=== PATIENT | female | born 1990 | race Caucasian/White ===

== ENCOUNTER 2019-05-21 11:15 | Outpatient (REF) | payer MEDICAID, SELFPAY ==
--- NOTE | 2019-05-21 10:50 | PAPFT_PTH ---
PATIENT: Rocío Mills LOC: [facility] U#:[id number] AGE/SX: 29/F ROOM: RE05/21/[address]: Chance Heaton MD : 1990 BED: DIS: 05/21/2019 SPEC #: [id number] RECD: 05/21/19 12:59 STATUS: VERONICA REQ #: [id number] KEITH: 05/21/19 10:[address]: Chance Heaton DEPT: [facility] Cytology RECD BY: Johanna Paul ENTERED: 05/21/19 13:00 SP TYPE: PAPFT OTHR DR: Coco Monge V Tissues: 1 - CX/ENDOCX FOR PAP SMEARS Procedures: PAP THIN PREP/[facility] Screening HPV DNA PROBE Comments: [id number]
== END 2019-05-21 11:35 ==
LOC: LBN 11:15
PROVIDERS: PCP Family Medicine; Visit Provider Obstetrics & Gynecology
DX: Z12.4 Encounter for screening for malignant neoplasm of cervix (principal); Z11.51 Encounter for screening for human papillomavirus (HPV)
CPT/HCPCS: 88142; 87624

== ENCOUNTER 2019-11-28 09:51 | Outpatient (CLI) | payer MEDICAID, SELFPAY ==
[2019-11-28 11:06] LABS: Abs Immature Grans 0.01 k/cumm (0.0-0.09); Absolute Basophil Count 0.01 k/cumm (0.0-0.2); Absolute Eosinophil Count 0.04 k/cumm (0.0-0.7); Absolute Lymphocyte Count 1.92 k/cumm (1.2-3.4); Absolute Monocyte Count 0.36 k/cumm (0.11-0.7); Absolute Neutrophil Count 4.56 k/cumm (1.2-6.7); Basophils % 0.1; Eosinophils % 0.6; HCT 36.5 % (36.0-46.0); HGB 12.4 g/dL (12.0-15.5); Immature Grans % 0.1 %; Lymphocytes % 27.8; Mean Corpuscular Hemoglobin 30.9 pg (27.0-33.0); Mean Platelet Volume 10.2 fL (8.0-11.0); Monocytes % 5.2; Neutrophils % 66.2; Platelet Count 327 x1000/uL (130-400); RBC 4.01 m/cumm (4.00-5.20)
[2019-11-28 16:15] LABS: *AMPHETAMINES SCREEN URINE Negative (Negative); *BARBITURATES SCREEN URINE Negative (Negative); *BENZODIAZEPINES SCREEN URINE Negative (Negative); Cannabinoids THC Negative (Negative); Cocaine Screen,Urine Negative (Negative); METHADONE URINE SCREEN Negative (Negative); OPIATES URINE SCREEN Negative (Negative)
[2019-11-28 16:26] LABS: Tricyclic Antidepressants Negative (Negative)
[2019-11-29 10:01] LABS: Rubella IgG Ab (UVM) Positive (See Note); Varicella IgG Antibody Positive (See Note)
[2019-11-29 10:07] LABS: HIV-1/2 Ag & Ab Screen Negative (Negative); Hepatitis B Surface Ag Negative (Negative)
[2019-11-29 10:09] LABS: Hepatitis C Ab w Rflx HCV PCR Negative (Negative)
[2019-11-29 13:01] LABS: Syphilis Total Ab w/Reflex Nonreactive (Nonreactive)
[2019-12-04 08:19] LABS: Buprenorphine Negative; Norbuprenorphine Negative
== END 2019-11-28 10:11 ==
PROVIDERS: PCP Family Medicine; Visit Provider Advanced Practice Midwife
DX: Z34.91 Encounter for supervision of normal pregnancy, unspecified, first trimester (principal); Z77.011 Contact with and (suspected) exposure to lead; Z11.4 Encounter for screening for human immunodeficiency virus [HIV]; Z11.59 Encounter for screening for other viral diseases; Z01.84 Encounter for antibody response examination
CPT/HCPCS: 80307; 86787; 86803; 86850; 86900; 86901; 87340; 87389; 83655; 84443; 85025; 86762; 86780; 87086

== ENCOUNTER 2019-11-28 10:01 | Outpatient (CLI) | payer MEDICAID, SELFPAY ==
[2019-11-29 12:22] LABS: Antithrombin Activity, Plasma 103 % (80 - 130)
[2019-12-04 14:00] LABS: Protein C, Functional 73 % (71-199); Protein S, Functional 47 % (64-147)
[2019-12-04 16:00] LABS: Methylenetetrahydrofol Reduc M Heterozygous (Negative); Prothrombin G20210A Mutation Negative (Negative)
== END 2019-11-28 10:21 ==
PROVIDERS: PCP Family Medicine; Visit Provider Obstetrics & Gynecology
DX: R77.8 Other specified abnormalities of plasma proteins (principal); Z83.2 Family history of diseases of the blood and blood-forming organs and certain disorders involving the immune mechanism
CPT/HCPCS: 36415; 81240; 85300; 85306; 81291; 85303; 86147

== ENCOUNTER 2019-12-03 04:36 | Outpatient (CLI) | payer MEDICAID, SELFPAY ==
[2019-12-03 13:04] LABS: Kit/Specimen SENT
[2019-12-09 07:20] LABS: Result Summary NEGATIVE; Specimen WB Whole Blood
== END 2019-12-03 04:56 ==
PROVIDERS: PCP Family Medicine; Visit Provider Advanced Practice Midwife
DX: Z34.91 Encounter for supervision of normal pregnancy, unspecified, first trimester (principal); Z36.89 Encounter for other specified antenatal screening
CPT/HCPCS: 36415; 81220

== ENCOUNTER 2019-12-18 01:36 | Outpatient (CLI) | payer MEDICAID, SELFPAY ==
[2019-12-20 12:26] LABS: Homocysteine 4.8 umol/L (5.0-13.9)
[2019-12-24 17:51] LABS: Factor V Leiden(R506Q) Mut Negative (Negative)
== END 2019-12-18 01:56 ==
PROVIDERS: Obstetrics & Gynecology; PCP Family Medicine; Visit Provider Advanced Practice Midwife
DX: E72.12 Methylenetetrahydrofolate reductase deficiency (principal)
CPT/HCPCS: 36415; 81241; 83090

== ENCOUNTER 2020-01-16 01:01 | Outpatient (CLI) | payer MEDICAID, SELFPAY ==
--- NOTE | 2020-01-16 14:25 | DI.US_ITS ---
EXAM: US OB 2-3 TRIMESTER CLINICAL HISTORY: .Z34.90 TECHNIQUE: Ultrasound performed using standard protocol. COMPARISON: No exams were available for comparison FINDINGS: Ob ultrasound was performed utilizing 2nd trimester protocol. biometry is consistent with gest ational age of 18 weeks 3 days and EDC of 06/15/2020. Placenta is anterior. Lower margin of the shi centa is about 2 cm above the internal os. No placenta previa seen. anomaly screen is within normal limits as per the attached checklist. There is a normal quanti ty of amniotic fluid. heart rate is 130 BPM. IMPRESSION: Low-lying placenta noted in 18 week 3 day gestational without evidence of placenta previa. Follow-up ultrasound suggested at approximately 30 weeks gestational age. DATA REPOSITORY:
== END 2020-01-16 01:21 ==
PROVIDERS: PCP Family Medicine; Visit Provider Advanced Practice Midwife
DX: Z34.92 Encounter for supervision of normal pregnancy, unspecified, second trimester (principal); Z3A.18 18 weeks gestation of pregnancy
CPT/HCPCS: 76805

== ENCOUNTER → 2022-02-04 00:52 | Outpatient (CLI) | payer MEDICAID, SELFPAY ==
--- NOTE | 2022-02-04 14:30 | DI.US_ITS ---
Exam(s) US BREAST RT COMPLETE EXAM: US BREAST RT COMPLETE CLINICAL HISTORY: LUMP IN RT BREAST, UPPER INNER QUADRANT, N63.12, FAM H/O BREAST CA TECHNIQUE: Ultrasound right breast performed using standard protocol. All 4 quadrants of the right breast were evaluated sonographically. COMPARISON: No exams were available for comparison FINDINGS: No solid or cystic masses, hypoechoic foci, areas of abnormal shadowing, or areas of skin thickening. IMPRESSION: 1. No sonographically suspicious finding. 2. Findings were discussed with the patient on the date of the examination. BI-RADS Category 1 - Negative DATA REPOSITORY:
== END ==
PROVIDERS: PCP Family Medicine; Visit Provider Nurse Practitioner Family
DX: N63.12 Unspecified lump in the right breast, upper inner quadrant (principal); Z80.3 Family history of malignant neoplasm of breast
CPT/HCPCS: 76642

== ENCOUNTER 2022-06-13 16:38 | Outpatient (REF) | payer MEDICAID, SELFPAY ==
[2022-06-13 16:34] LABS: Abs Immature Grans 0.01 10^3/uL (0.0-0.06); Absolute Basophil Count 0.05 10^3/uL (0.0-0.2); Absolute Eosinophil Count 0.04 10^3/uL (0.0-0.7); Absolute Lymphocyte Count 1.81 10^3/uL (1.2-3.4); Absolute Monocyte Count 0.48 10^3/uL (0.1-0.8); Absolute Neutrophil Count 3.96 10^3/uL (1.2-6.7); Basophils % 0.8; Eosinophils % 0.6; HCT 41.2 % (36.0-46.0); HGB 13.5 g/dL (11.2-15.7); Immature Grans % 0.2; Lymphocytes % 28.5; MCH 29.6 pg (27.0-33.0); MCHC 32.8 % (32.0-36.0); MCV 90 fL (80-95); MPV 11.3 fL (8.0-11.0); Monocytes % 7.6; Neutrophils % 62.3; Platelet Count 363 10^3/uL (130-400); RBC 4.56 10^6/uL (3.93-5.22); RDW 12.6 % (11.7-14.6); RDW-SD 41.6 fL; WBC 6.35 10^3/uL (4.4-10.8)
[2022-06-13 18:49] LABS: ALT 36 U/L (14-59); AST 26 U/L (15-37); Alkaline Phosphatase 54 U/L (46-116); BUN 15 mg/dL (7-18); Bilirubin, Total 0.4 mg/dL (0.2-1.0); CREATININE 0.7 mg/dL (0.55-1.02); Calcium 8.7 mg/dL (8.5-10.1); Chloride 104 mmol/L (98-107); Estimated GFR 117.04 (mL/min/1.73m2); Glucose 69 mg/dL (74-106); Sodium 140 mmol/L (136-145); TSH (W/Ref FT4) 1.53 uIU/mL (0.36-3.74); Total Protein 7.7 g/dL (6.4-8.2)
== END 2022-06-13 16:39 | disposition home or self-care (01) ==
LOC: NCHCN 16:38
PROVIDERS: PCP Family Medicine; Visit Provider Nurse Practitioner Family
DX: R19.7 Diarrhea, unspecified (principal)
CPT/HCPCS: 80053; 84443; 85025

== ENCOUNTER 2022-06-20 13:58 | Outpatient (REF) | payer MEDICAID, SELFPAY ==
[2022-06-21 10:29] LABS: Campylobacter PCR Negative (Negative); Salmonella PCR Negative (Negative); Shiga Toxin PCR Negative (Negative); Shigella/Enteroinvasive Ecoli Negative (Negative)
== END 2022-06-20 13:59 | disposition home or self-care (01) ==
LOC: NCHCN 13:58
PROVIDERS: PCP Family Medicine; Visit Provider Nurse Practitioner Family
DX: R19.7 Diarrhea, unspecified (principal)
CPT/HCPCS: 87329; 87505; 83630

== ENCOUNTER 2024-01-01 14:47 | Outpatient (REF) | payer MEDICAID, SELFPAY ==
--- NOTE | 2024-01-01 08:45 | PAPFT_PTH ---
PATIENT: Rocío Mills LOC: [facility]#:[id number] AGE/SX: 33/F ROOM: RE01/01/[address]: Sarah Mcnally : 1990 BED: DIS: 01/01/2024 SPEC #: [id number] RECD: 01/01/24 18:05 STATUS: VERONICA REQ #: [id number] KEITH: 01/01/24 08:[address]: Sarah Mcnally DEPT: [facility] Cytology RECD BY: Johanna Paul ENTERED: 01/01/24 18:05 SP TYPE: PAPFT OTHR DR: Coco Monge V Tissues: 1 - CX/ENDOCX FOR PAP SMEARS Procedures: PAP THIN PREP/[facility] Screening HPV DNA PROBE Comments: [id number]
== END 2024-01-01 14:48 | disposition home or self-care (01) ==
LOC: NCHCN 14:47
PROVIDERS: PCP Family Medicine; Visit Provider Nurse Practitioner Family
DX: Z12.4 Encounter for screening for malignant neoplasm of cervix (principal)
CPT/HCPCS: 88142; 87624

== ENCOUNTER → 2024-02-07 01:22 | Outpatient (CLI) | payer OTHER, SELFPAY ==
--- NOTE | 2024-02-07 | DI.MAMMO_ITS ---
Exam(s) MAMMO SCREENING EXAM: MAMMO SCREENING CLINICAL HISTORY: SCREENING MAMMO FOR BREAST CANCER Z12.31 TECHNIQUE: Bilateral full field digital CC and MLO mammographic images were obtained with 3D tomosyn thesis and utilizing computer aided detection (CAD). COMPARISON: This is a baseline examination. FINDINGS: Masses/Architectural Distortion: None seen. Microcalcifications: No suspicious pleomorphic-type are seen. Skin Thickening/Nipple Retraction: None. IMPRESSION: 1. No features of malignancy noted. 2. Unless there is more urgent need, screening mammography is recommended, as per [employer] [place] guidelines. BI-RADS Category 1 - Negative Breast Density - Category C - Heterogeneously dense Breast density category C or D implies that the patient has dense breast tissue. Dense breast tissue is very common and is not abnormal but dense breast tissue can make it harder to find cancer on a ma mmogram. Also, dense breast tissue may increase their breast cancer risk. This information about the result of the mammogram report was provided to the patient to raise their awareness. Use this report when you speak with the patient about their risks for breast cancer, which includes their family hist ory. At that time, you may recommend for more screening tests (Ultrasound or MRI) as they might be us eful based on their risk. A negative radiographic report should not delay biopsy if a dominant or clinically suspicious mass is present. Up to ten percent of cancers are not identified on mammography. A negative report may reinforce clinical impression. Adenosis and dense breasts may obscure an underlying neoplasm. False positive reports average 6 to 10%. Patient will receive a letter notifying them of these results.
== END ==
PROVIDERS: PCP Family Medicine; Visit Provider Nurse Practitioner Family
DX: Z12.31 Encounter for screening mammogram for malignant neoplasm of breast (principal); R92.333 Mammographic heterogeneous density, bilateral breasts
CPT/HCPCS: 77063; 77067

== ENCOUNTER 2024-02-23 10:41 | Outpatient (CLI) | payer OTHER, SELFPAY | END 2024-02-23 10:42 | disposition home or self-care (01) | PROVIDERS: PCP Family Medicine; Visit Provider Nurse Practitioner Family | DX: R00.2 Palpitations (principal) | CPT/HCPCS: 93270 ==

== ENCOUNTER 2024-03-28 08:11 | Outpatient (CLI) | payer OTHER, SELFPAY ==
--- NOTE | 2024-03-28 13:48 | W.CARDEVENT ---
Date of service: 03/28/24 Time of Service: 13:48 Cardiac Event Recorder Referring Provider:: Sarah Mena Indications:: Palpitations Cardiac Event Note: This is a cardiac event monitor. Patient was monitored for 15 days and 15 hours Rhythm throughout was sinus with an average heart rate of 78. Minimum heart rate was 48, maximum 134 There were no significant ventricular or supraventricular dysrhythmias. Patient symptoms were reported which correlated to sinus rhythm
== END 2024-03-28 08:12 | disposition home or self-care (01) ==
LOC: CARDOPNVT 08:11
PROVIDERS: PCP Family Medicine; Visit Provider Internal Medicine Cardiovascular Disease
DX: R00.2 Palpitations (principal)

== ENCOUNTER 2024-04-26 00:21 | Outpatient (CLI) | payer MEDICAID, SELFPAY ==
--- NOTE | 2024-04-26 07:45 | DI.US_ITS ---
Exam(s) US OB 1ST TRIMESTER EXAM: US OB 1ST TRIMESTER CLINICAL HISTORY: dating and viability,Z3A.01. COMPARISON: No exams were available for comparison TECHNIQUE: Transabdominal first trimester obstetrical ultrasound performed. FINDINGS: Sonographic images demonstrate a single intrauterine gestation. A yolk sac and pole are seen. Sonographically assessed gestational age based upon crown-rump length of 28 cm is: 9+ 6 weeks Estimated date of delivery based on this ultrasound is: 23 November 2024 Estimated date of delivery based upon LMP: 20 November 2024 heart rate motion is Dopplered at: 171 bpm. No free fluid identified. The ovaries were not visualized. Uterus: 8.0 x 4.8 x 8.3 cm IMPRESSION: Single live intrauterine gestation measuring 9 weeks 6 days. DATA REPOSITORY:
== END 2024-04-26 00:41 ==
LOC: DI 00:21
PROVIDERS: PCP Family Medicine; Visit Provider Advanced Practice Midwife
DX: Z3A.09 9 weeks gestation of pregnancy (principal); Z34.81 Encounter for supervision of other normal pregnancy, first trimester
CPT/HCPCS: 76801

== ENCOUNTER 2024-04-29 03:15 | Outpatient (CLI) | payer MEDICAID, SELFPAY ==
[2024-04-29 10:30] LABS: Panorama Kit Sent via Fed Ex
[2024-04-29 10:37] LABS: Abs Immature Grans 0.02 10^3/uL (0.0-0.06); Absolute Basophil Count 0.04 10^3/uL (0.0-0.2); Absolute Eosinophil Count 0.08 10^3/uL (0.0-0.7); Absolute Monocyte Count 0.41 10^3/uL (0.1-0.8); Absolute Neutrophil Count 4.67 10^3/uL (1.2-6.7); Basophils % 0.5 %; HCT 36.9 % (36.0-46.0); HGB 12.1 g/dL (11.2-15.7); Immature Grans % 0.3 %; Lymphocytes % 31.5 %; MCH 30.1 pg (27.0-33.0); MCHC 32.8 % (32.0-36.0); MCV 92 fL (80-95); MPV 10.2 fL (8.0-11.0); Monocytes % 5.4 %; Neutrophils % 61.3 %; Platelet Count 314 10^3/uL (130-400); RBC 4.02 10^6/uL (3.93-5.22); RDW 13.1 % (11.7-14.6); RDW-SD 44.6 fL; WBC 7.62 10^3/uL (4.4-10.8)
[2024-04-29 19:01] LABS: Hepatitis B Surface Ag Negative (Negative)
[2024-04-29 19:33] LABS: HIV-1/2 Ag & Ab Screen Negative (Negative)
[2024-04-29 19:39] LABS: Hepatitis C Ab w Rflx HCV PCR Negative (Negative)
[2024-04-30 11:03] LABS: Varicella IgG Antibody Positive (See Note)
[2024-04-30 11:05] LABS: Rubella IgG Ab (UVM) Positive (See Note)
[2024-05-01 17:58] LABS: Syphilis IgG w/Reflex Nonreactive (Nonreactive)
== END 2024-04-29 03:16 | disposition home or self-care (01) ==
LOC: LBO 03:15
PROVIDERS: PCP Family Medicine; Visit Provider Advanced Practice Midwife
DX: Z34.91 Encounter for supervision of normal pregnancy, unspecified, first trimester (principal); Z3A.08 8 weeks gestation of pregnancy
CPT/HCPCS: 36415; 86787; 86803; 86850; 86900; 86901; 87340; 87389; 85025; 86762; 86780

== ENCOUNTER 2024-04-29 17:58 | Outpatient (REF) | payer MEDICAID, SELFPAY ==
[2024-05-01 12:55] LABS: Chlamydia Result Negative (Negative); GC Result Negative (Negative)
[2024-05-08 23:07] LABS: Buprenorphine Negative ng/mL (Cutoff: 5.0); Norbuprenorphine Negative ng/mL (Cutoff: 2.5)
== END 2024-04-29 17:59 | disposition home or self-care (01) ==
LOC: LBN 17:58
PROVIDERS: PCP Family Medicine; Visit Provider Advanced Practice Midwife
DX: Z34.91 Encounter for supervision of normal pregnancy, unspecified, first trimester (principal); Z3A.08 8 weeks gestation of pregnancy
CPT/HCPCS: 80348; 87491; 87591; 87086